=== PATIENT | male | born 1990 | race Caucasian/White ===

== ENCOUNTER 2021-06-25 14:04 | Emergency (ER) | payer OTHER ==
[2021-06-25] MEDS ORDERED: Lidocaine 1% 5 ML VIAL INJECT ONE (15:12)
[2021-06-25] MEDS ORDERED: Bupivacaine 0.25% 10 ML SDV INJECT ONE (15:13)
[2021-06-25] MEDS ORDERED: Diphtheria,Pertussis(Acell),Tetanus Vaccine 0.5 ML Syringe IM ONE (15:23)
[2021-06-25] MEDS ORDERED: Lidocaine/Epineph/Tetracaine 3 ML Syringe TOP ONE ×2 (15:50)
[2021-06-25] MEDS ORDERED: HYDROmorphone 1 MG/ML Syringe IM ONE (16:20)
== END 2021-06-25 18:36 | disposition home or self-care (01) ==
LOC: MW.ED 14:04
DX: S61.312A Laceration without foreign body of right middle finger with damage to nail, initial encounter (principal); Z23 Encounter for immunization; W27.8XXA Contact with other nonpowered hand tool, initial encounter
CPT/HCPCS: 12002; 73140; 90471; 90715; 96372; 99283; A9270; J1170; J3490